=== PATIENT | male | born 1995 | race Caucasian/White ===

== ENCOUNTER 2018-01-11 17:22 | Inpatient (IN) | payer OTHER, SELFPAY ==
[2018-01-11 17:23] VITALS: BP 109/68; PULSE 129; RESP 18; TEMP 37.8; O2SAT 99; BMI 24.3
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
[2018-01-11] MEDS: Acetaminophen 500 MG Tablet 1000 MG PO (18:02)
[2018-01-11] MEDS: 0.9% Normal Saline 1,000 ML 999 ML IV (18:02)
[2018-01-11 18:12] LABS: Absolute Lymphocyte Count 1.07 X10^3/ul (0.83-4.51); Absolute Neutrophil Count 14.6 X10^3/uL (2.0-7.7); Eosinophil# 0.21 X10^3/uL; Eosinophils% 1.2 % (0-5); Hematocrit 43.3 % (40-54); Hemoglobin 15.3 g/dl (13.0-16.5); Lymphocyte # 1.07 X10^3/ul (4.0); Lymphocyte % 6.2 % (19-41); Mean Corp Hgb Conc 35.3 g/gl (32-36); Mean Corpuscular Hgb 29.6 pg (27.0-32.0); Mean Corpuscular Volume 83.8 fL (80-94); Mean Platelet Vol. 9.4 fl (6.2-12.0); Monocyte# 1.27 X10^3/uL; Monocyte% 7.4 % (0-10); Neutrophil # 14.63 X10^3/uL (2.7-7.7); POSITIVE COUNT NO; POSITIVE DIFFERENTIAL NO; POSITIVE MORPHOLOGY NO; Platelet Count 159 K/mm3 (150-450); RBC Distribution Width CV 12.3 % (11.6-14.6); RBC Distribution Width SD 37.4 fl (35.1-43.9); Red Blood Count 5.17 M/mm3 (4.6-6.2); White Blood Count 17.2 K/mm3 (4.4-11.0)
[2018-01-11 18:19] LABS: Anion Gap 11 (5-15); BUN 11 mg/dL (7-18); BUN/Creat Ratio 12.1 RATIO (10-20); Calcium,Total 9.1 mg/dL (8.5-10.1); Chloride 97 mmol/L (98-107); Creatinine, Serum 0.91 mg/dL (0.70-1.30); EST Glomerular Filtration Rate 112 mL/min (>60); Est Glom Filt Rate - Afr Amer 135 mL/min (>60); Estimated Creatinine Clearance 132.59 ml/min; Glucose 103 mg/dL (74-106); Potassium 3.6 mmol/L (3.5-5.1); Sodium Level 134 mmol/L (136-145)
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
[2018-01-11 19:23] VITALS: BMI 25.5
[2018-01-11 19:27] VITALS: BMI 25.5
--- NOTE | 2018-01-11 19:31 | VDUE_ITS ---
Reason For Study: Swelling Right Proximal Right jugular vein is spontaneous, widely patent, phasic, with no intraluminal echogenicity noted. Right subclavian vein is spontaneous, widely patent, phasic, with no intraluminal echogenicity noted. Right Lower Arm Right radial vein is compressible. Right ulnar vein is compressible. Right Arm Right axillary vein is spontaneous, patent, phasic, competent, compressible and demonstrates augmentation. Right brachial vein is compressible. Right cephalic vein is compressible. Right basilic vein is compressible. Interpretation Summary Deep veins of the right upper extremity are patent and compressible segmentally. There is no evidence of deep vein thrombosis. The superficial veins of the right upper extremity, the basilic and cephalic veins, are patent and compressible. There is no evidence of right upper extremity superficial thrombophlebitis involving the veins imaged. Ordering Physician: Alvaro Sellers Performed By: Carlos RODRIGUEZ, May IBRAHIM and Student ???
[2018-01-11 20:30] LABS: Erythrocyte Sedimentation Rate 46 mm/hr (0-15)
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
[2018-01-11] MEDS: 0.9% Normal Saline 1,000 ML 100 ML IV (20:36)
[2018-01-11] MEDS: Cefazolin 1 GM/50 ML BAG IV (21:30)
[2018-01-11 22:11] LABS: Lactic Acid 1.8 mmol/L (0.4-2.0)
[2018-01-11 22:58] LABS: Staph aureus DNA By PCR POSITIVE (Negative)
[2018-01-11 22:59] LABS: M R Staph aureus DNA By PCR POSITIVE (Negative); Probe Check PASS
[2018-01-12 02:00] VITALS: BP 115/65; PULSE 82; RESP 16; TEMP 37.1; O2SAT 97
--- NOTE | 2018-01-12 02:07 | PCM.RX.CS ---
Consult Pharmacy has been consulted to manage selected antiobiotic: Vancomycin Type of Consult: New start Suspected Infection: Skin/Soft tissue Labs: Sodium 134 mmol/L (136-145) L 01/11/18 17:35 Potassium 3.6 mmol/L (3.5-5.1) 01/11/18 17:35 Chloride 97 mmol/L (98-107) L 01/11/18 17:35 Carbon Dioxide 26.0 mmol/L (21.0-32.0) 01/11/18 17:35 Anion Gap 11 (5-15) 01/11/18 17:35 BUN 11 mg/dL (7-18) 01/11/18 17:35 Creatinine 0.91 mg/dL (0.70-1.30) 01/11/18 17:35 Est GFR (MDRD) Af Amer 135 mL/min (>60) 01/11/18 17:35 Est GFR (MDRD) Non-Af 112 mL/min (>60) 01/11/18 17:35 BUN/Creatinine Ratio 12.1 RATIO (10-20) 01/11/18 17:35 Glucose 103 mg/dL (74-106) 01/11/18 17:35 Goal Trough: 10-15 mcg/mL Pharmacy Plan for Drug Dosing: Pharmacy Service will continue to monitor and adjust dosing as required. Medications Vancomycin HCl (Vancomycin) 1,000 mg in 200 mls @ 200 mls/hr IV Q8H [facility] Follow-Up Labs: Trough Vancomycin Labs to be done on [date and time ordered]: 01/13 @ 0200
--- NOTE | 2018-01-12 02:10 | PHA.PHARE_ITS ---
Consult Pharmacy has been consulted to manage selected antiobiotic: Vancomycin Type of Consult: New start Suspected Infection: Skin/Soft tissue Labs: Sodium 134 mmol/L (136-145) L 01/11/18 17:35 Potassium 3.6 mmol/L (3.5-5.1) 01/11/18 17:35 Chloride 97 mmol/L (98-107) L 01/11/18 17:35 Carbon Dioxide 26.0 mmol/L (21.0-32.0) 01/11/18 17:35 Anion Gap 11 (5-15) 01/11/18 17:35 BUN 11 mg/dL (7-18) 01/11/18 17:35 Creatinine 0.91 mg/dL (0.70-1.30) 01/11/18 17:35 Est GFR (MDRD) Af Amer 135 mL/min (>60) 01/11/18 17:35 Est GFR (MDRD) Non-Af 112 mL/min (>60) 01/11/18 17:35 BUN/Creatinine Ratio 12.1 RATIO (10-20) 01/11/18 17:35 Glucose 103 mg/dL (74-106) 01/11/18 17:35 Goal Trough: 10-15 mcg/mL Pharmacy Plan for Drug Dosing: Pharmacy Service will continue to monitor and adjust dosing as required. Medications Vancomycin HCl (Vancomycin) 1,000 mg in 200 mls @ 200 mls/hr IV Q8H [facility] [place] Follow-Up Labs: Trough Vancomycin Labs to be done on [date and time ordered]: 01/13 @ 0200
[2018-01-12] MEDS: Vancomycin IV 1,000 MG/200 ML BAG 200 MG IV ×3 (02:22→18:41)
[2018-01-12] MEDS: Cefazolin 1 GM/50 ML BAG IV ×2 (06:10→14:11)
[2018-01-12 06:15] LABS: Absolute Lymphocyte Count 0.96 X10^3/ul (0.83-4.51); Absolute Neutrophil Count 9.7 X10^3/uL (2.0-7.7); Basophil# 0.01 X10^3/uL; Basophil% 0.1 % (0-1); Eosinophil# 0.45 X10^3/uL; Eosinophils% 3.7 % (0-5); Hemoglobin 12.7 g/dl (13.0-16.5); Lymphocyte # 0.96 X10^3/ul (4.0); Lymphocyte % 7.9 % (19-41); Mean Corp Hgb Conc 35.3 g/gl (32-36); Mean Corpuscular Hgb 29.6 pg (27.0-32.0); Mean Corpuscular Volume 83.9 fL (80-94); Mean Platelet Vol. 9.8 fl (6.2-12.0); Monocyte# 1.02 X10^3/uL; Monocyte% 8.4 % (0-10); Neutrophil # 9.68 X10^3/uL (2.7-7.7); Neutrophil % 79.6 % (47-70); Platelet Count 170 K/mm3 (150-450); RBC Distribution Width CV 12.3 % (11.6-14.6); RBC Distribution Width SD 37.1 fl (35.1-43.9); Red Blood Count 4.29 M/mm3 (4.6-6.2); White Blood Count 12.2 K/mm3 (4.4-11.0)
[2018-01-12 06:17] LABS: POSITIVE COUNT NO; POSITIVE DIFFERENTIAL NO; POSITIVE MORPHOLOGY YES
[2018-01-12 06:18] LABS: Differential Indicated SCAN CRITERIA MET
[2018-01-12 06:20] LABS: Bedside Glucose 107 mg/dL (70-110)
[2018-01-12] MEDS: 0.9% Normal Saline 1,000 ML 100 ML IV (07:00)
[2018-01-12 08:40] VITALS: BP 114/54; PULSE 84; RESP 16; TEMP 36.6; O2SAT 96
--- NOTE | 2018-01-12 12:05 | CASEMGMT ---
SEE RN CM ASSESS LINK: D/C Plan: Home Intro self and RN CM role to pt and his mother who is at bedside. Pt awake/alert/oriented, willing to participate in assessment, and able to answer all questions appropriately. Pt lives with his parents and family and independent in ambulation and personal care ADL's. Pt uses no DME and no needs identified. Demographics and PCP confirmed. Denies having any further questions or needs. Pt wishes to return home on discharge. CM to follow for any discharge planning needs that may arise. Amee ADAMSONN RN CM
[2018-01-12 14:10] VITALS: BP 108/57; PULSE 90; RESP 16; TEMP 36.6; O2SAT 98
--- NOTE | 2018-01-12 16:07 | PCM.PN.ORT ---
Patient Problems: Active and Suspected Problems Cellulitis of right upper extremity (Acute) Subjective: Patient reexamined today. He states the pain is improving. His swelling is decreased. He still has a fair amount of swelling. No pain with elbow range of motion. Wound care is taken a look at the small wound on his elbow and started Silverlon dressing changes. Current pain is 5 out of 10. Worse with pressure on the forearm better with immobilization. - Physical Exam General: Alert, Oriented x3, Cooperative Extremities: - - Right upper extremity: Small area is dressed with Silverlon dressing. No active drainage. No underlying fluctuance. Forearm is still swollen with overlying erythema. Erythema is improved from yesterday receding from outline. Erythema is not as intense. There is no specific area of fluctuance that I know today consistent with an abscess. Vital Signs Temp Pulse Resp BP Pulse Ox 97.9 F 90 16 108/57 L 98 01/12/18 14:10 01/12/18 14:10 01/12/18 14:10 01/12/18 14:10 01/12/18 14:10 Oxygen Delivery Method Room Air Weight: 177 lb 15.984 oz Body Mass Index (BMI) 25.5 Intake and Output for Last 24 Hours 01/10/18 01/11/18 01/12/18 23:59 23:59 23:59 Intake Total 3394 / 3394 Balance 3394 / 3394 Microbiology Past 72 Hours 01/11/18 21:25 Gram Stain - Final Wound Abcess - Elbow Laboratory Tests Past 24 Hrs 01/11/18 01/12/18 21:25 05:25 WBC 12.2 H RBC 4.29 L Hgb 12.7 L Hct 36.0 L MCV 83.9 MCH 29.6 MCHC 35.3 RDW 12.3 RDW Differential 37.1 Plt Count 170 MPV 9.8 Immature Gran % (Auto) 0.300 Neut % (Auto) 79.6 H Lymph % (Auto) 7.9 L [place] % (Auto) 8.4 Eos % (Auto) 3.7 Baso % (Auto) 0.1 Absolute Neuts (auto) 9.7 H Absolute Lymphs (auto) 0.96 Total Counted Not Reportable S.aureus Protein A PCR POSITIVE H MRSA (PCR) POSITIVE H POC Glucose 01/12/18 06:17 POC Glucose 107 Medical Necessity - Tobacco Use Smoking Status: Current every day smoker Tobacco Use: Cigars Assessment/Plan All Active Problems Cellulitis of right upper extremity (Acute) Right forearm cellulitis At this point I appreciate only cellulitis of the forearm. No underlying abscess or infected bursitis is noted. I did discuss with the patient the possibility of developing an abscess. Continue to monitor his skull examination. If he does have resolution of the erythema except for an one area could be possibility of underlying abscess in the forearm. CT or MRI would be advised if that is the case. Based on his current clinical examination and symptoms I recommend continued antibiotics for treatment of cellulitis and follow-up with his primary care doctor. [facility] Office:
--- NOTE | 2018-01-12 16:49 | CHAPLAIN ---
Type of Pastoral Visit _x__ Initial Visit ___ Follow-up Visit ___ On-call Visit ___ General Patient Visit ___ Spiritual Assessment ___ Family Conference ___ Bereavement ___ Rapid Response ___ Code Blue ___ Other (describe below) Pastoral Care Referral From x___ Patient ___ Family ___ Nurse ___ Physician ___ Ceramics Teacher ___ Cloth Printing Inspector ___ Other (describe below) Sacrament/Intervention _x__ Active listening ___ Anointing ___ Congregation ___ Bereavement ___ Communion ___ Brianne exploration ___ ___ Life review ___ Prayer ___ Reconciliation ___ Sacrament of Sick ___ Supportive presence ___ Wedding ___ Other (describe below) Pastoral Comments
--- NOTE | 2018-01-12 18:42 | PN_ITS ---
Patient Problems: Active and Suspected Problems Cellulitis of right upper extremity (Acute) Subjective: Patient seen and examined today, he still having some redness in his right forearm, there is no visible drainage coming out of the abraded area on the patient's right elbow. Patient's mother was in the room during my examination. Culture of the elbow wound is pending at this time, PCR was obtained last night was positive for staph and MRSA. - Physical Exam General: Alert, Oriented x3, Cooperative HEENT: Atraumatic, PERRLA, EOMI, Normocephalic Oral: Moist Mucosa Neck: Supple, Trachea Midline, Thyroid Normal Size and Texture Lungs: Clear to auscultation, Normal air movement, No rhonchi, No wheeze, No rales Cardiovascular: Regular rate, No murmurs Abdomen: Bowel Sounds Present, Soft, Non Tender Extremities: Capillary Refill Less than 3 Seconds, Edema - Generalized edema is noted of the right forearm along with redness Skin: Ulcer/ Wound - There is an abraded area approximately 1-2 cm in diameter over the patient's right elbow area, Rash Present - There is redness present over the patient's right forearm Neurological: Cranial nerves II-XII grossly intact, Neuro grossly intact, Sensory exam intact to light touch and pain, Coordination normal Psych/Mental Status: Normal Affect, Appropriate, Alert and oriented to time, place, person, mood and affect Vital Signs Temp Pulse Resp BP Pulse Ox 97.9 F 90 16 108/57 L 98 01/12/18 14:10 01/12/18 14:10 01/12/18 14:10 01/12/18 14:10 01/12/18 14:10 Oxygen Delivery Method Room Air Weight: 80.739 kg Body Mass Index (BMI) 25.5 Intake and Output for Last 24 Hours 01/10/18 01/11/18 01/12/18 23:59 23:59 23:59 Intake Total 3394 / 3394 Balance 3394 / 3394 Microbiology Past 72 Hours 01/11/18 21:25 Gram Stain - Final Wound Abcess - Elbow Laboratory Tests Past 24 Hrs 01/11/18 01/12/18 21:25 05:25 WBC 12.2 H RBC 4.29 L Hgb 12.7 L Hct 36.0 L MCV 83.9 MCH 29.6 MCHC 35.3 RDW 12.3 RDW Differential 37.1 Plt Count 170 MPV 9.8 Immature Gran % (Auto) 0.300 Neut % (Auto) 79.6 H Lymph % (Auto) 7.9 L [place] % (Auto) 8.4 Eos % (Auto) 3.7 Baso % (Auto) 0.1 Absolute Neuts (auto) 9.7 H Absolute Lymphs (auto) 0.96 Total Counted Not Reportable S.aureus Protein A PCR POSITIVE H MRSA (PCR) POSITIVE H POC Glucose 01/12/18 06:17 POC Glucose 107 Medical Necessity - Tobacco Use Smoking Status: Current every day smoker Tobacco Use: Cigars Assessment/Plan All Active Problems Cellulitis of right upper extremity (Acute) #1 cellulitis of the right forearm-probably secondary to MRSA, Ancef will be stopped and the patient will be maintained on vancomycin, infectious disease will see the patient tomorrow Code Visit Inpatient E&M: 02266 Subs Hosp L2
[2018-01-12 20:34] VITALS: BP 111/56; PULSE 80; RESP 16; TEMP 36.8; O2SAT 99
[2018-01-13] MEDS: Vancomycin IV 1,000 MG/200 ML BAG 200 MG IV (02:23)
[2018-01-13 02:27] VITALS: BP 116/57; PULSE 76; RESP 16; TEMP 37.2; O2SAT 97
[2018-01-13 03:34] LABS: Vancomycin, Trough Level 6.8 ug/mL (5.0-15.0)
--- NOTE | 2018-01-13 05:39 | PCM.RX.CS ---
Consult Pharmacy has been consulted to manage selected antiobiotic: Vancomycin Type of Consult: Follow-up Suspected Infection: Skin/Soft tissue Prior Doses of Antibiotics Received/Current Regimen: Medications Vancomycin HCl 1,750 mg/ (Sodium Chloride) 535 mls @ 250 mls/hr IV Q8H [facility] Discontinued Medications Vancomycin HCl (Vancomycin) 1,000 mg in 200 mls @ 200 mls/hr IV Q8H [facility] Last Admin: 01/13/18 02:23 Dose: 200 mls/hr Labs: Sodium 134 mmol/L (136-145) L 01/11/18 17:35 Potassium 3.6 mmol/L (3.5-5.1) 01/11/18 17:35 Chloride 97 mmol/L (98-107) L 01/11/18 17:35 Carbon Dioxide 26.0 mmol/L (21.0-32.0) 01/11/18 17:35 Anion Gap 11 (5-15) 01/11/18 17:35 BUN 11 mg/dL (7-18) 01/11/18 17:35 Creatinine 0.91 mg/dL (0.70-1.30) 01/11/18 17:35 Est GFR (MDRD) Af Amer 135 mL/min (>60) 01/11/18 17:35 Est GFR (MDRD) Non-Af 112 mL/min (>60) 01/11/18 17:35 BUN/Creatinine Ratio 12.1 RATIO (10-20) 01/11/18 17:35 Glucose 103 mg/dL (74-106) 01/11/18 17:35 Vancomycin Trough 6.8 ug/mL (5.0-15.0) 01/13/18 01:30 Microbiology: Microbiology 01/11/18 21:25 Wound Abcess - Elbow Gram Stain - Final Weight used for dosin.7 kg Estimated Creatinine Clearance: 132 Goal Trough: 10-15 mcg/mL Pharmacy Plan for Drug Dosing: Trough level returned low at 6.8. Goal range is 10-15. Increased dose to 1750mg q8hrs, and will re-draw trough level before fourth dose. Pharmacy Service will continue to monitor and adjust dosing as required. Follow-Up Labs: Trough Vancomycin Labs to be done on [date and time ordered]: 01/14/18 @0130
[2018-01-13 07:02] LABS: Absolute Lymphocyte Count 1.04 X10^3/ul (0.83-4.51); Absolute Neutrophil Count 6.2 X10^3/uL (2.0-7.7); Basophil# 0.01 X10^3/uL; Basophil% 0.1 % (0-1); Eosinophil# 0.39 X10^3/uL; Eosinophils% 4.5 % (0-5); Hematocrit 35.4 % (40-54); Hemoglobin 12.2 g/dl (13.0-16.5); Lymphocyte # 1.04 X10^3/ul (4.0); Mean Corp Hgb Conc 34.5 g/gl (32-36); Mean Corpuscular Hgb 29.4 pg (27.0-32.0); Mean Corpuscular Volume 85.3 fL (80-94); Mean Platelet Vol. 9.7 fl (6.2-12.0); Monocyte# 1.02 X10^3/uL; Monocyte% 11.8 % (0-10); Neutrophil # 6.16 X10^3/uL (2.7-7.7); Neutrophil % 71.3 % (47-70); Platelet Count 206 K/mm3 (150-450); RBC Distribution Width CV 12.6 % (11.6-14.6); RBC Distribution Width SD 38.5 fl (35.1-43.9); Red Blood Count 4.15 M/mm3 (4.6-6.2); White Blood Count 8.7 K/mm3 (4.4-11.0)
[2018-01-13 07:08] LABS: POSITIVE COUNT NO; POSITIVE DIFFERENTIAL NO; POSITIVE MORPHOLOGY NO
[2018-01-13 08:05] VITALS: BP 107/56; PULSE 71; RESP 16; TEMP 36.6; O2SAT 100
[2018-01-13] MEDS: 0.9% NaCl Peripheral Flush Adult/Peds IV (09:49)
--- NOTE | 2018-01-13 11:18 | CON.PCM_ITS ---
Problem List (1) Cellulitis of right upper extremity Status: Acute Reason for Consult: cellulitis Consulted by: Dr. Coe History of Present Illness: The patient is a 22 year old M with no prior h/o skin infection who presented with one week of R elbow and forearm swelling/pain/redness/warmth/purulent drainage. No fever or chills. Sx started after he bumped his arm. No prior h/ o MRSA. No pain with joint movement. Sx worsened, came to ED, seen by ortho, improving on iv vanc. Full ROS performed and neg except as noted above. - Medical History Allergies/Adverse Reactions: Allergies No Known Allergies Allergy (Verified 01/11/18 17:25) Home Medications: Ambulatory Orders Medication Instructions Recorded NK [NK] 01/11/18 - Social History Tobacco Use: cigarettes Vital Signs Temp Pulse Resp BP Pulse Ox 97.8 F 71 16 107/56 L 100 01/13/18 08:05 01/13/18 08:05 01/13/18 08:05 01/13/18 08:05 01/13/18 08:05 Oxygen Delivery Method Room Air Weight: 80.739 kg Body Mass Index (BMI) 25.5 Microbiology Past 72 Hours 01/11/18 21:25 Gram Stain - Final Wound Abcess - Elbow Wound Culture - Preliminary Staphylococcus aureus Laboratory Tests Past 24 Hrs 01/11/18 01/13/18 01/13/18 21:25 01:30 06:30 WBC 8.7 RBC 4.15 L Hgb 12.2 L Hct 35.4 L MCV 85.3 MCH 29.4 MCHC 34.5 RDW 12.6 RDW Differential 38.5 Plt Count 206 MPV 9.7 Immature Gran % (Auto) 0.300 Neut % (Auto) 71.3 H Lymph % (Auto) 12.0 L [place] % (Auto) 11.8 H Eos % (Auto) 4.5 Baso % (Auto) 0.1 Absolute Neuts (auto) 6.2 Absolute Lymphs (auto) 1.04 Total Counted Not Reportable Vancomycin Trough 6.8 S.aureus Protein A PCR POSITIVE H MRSA (PCR) POSITIVE H - Other Studies Radiology: [] reviewed Other Studies: [] Route of nutrition/ use of supplements: [] Nutritional Intake: [] IV Site: [] Logan Catheter: [] - Physical Exam General: Alert, Oriented x3, Cooperative, No apparent distress HEENT: Atraumatic, PERRLA, EOMI Neck: Supple, No Nodes Lungs: Clear to auscultation, Normal air movement Cardiovascular: Regular rate, Regular Rhythm Abdomen: Soft, Non Tender, Non-Distended Skin: Rash Present - swelling, warmth, and redness over R forearm IV Site: Peripheral, without redness Musculoskeletal: No Tenderness to Palpation of Joints or Extremities Neurological: Cranial nerves II-XII grossly intact - Assessment/Plan Antibiotics: [] Assessment/Plan: [] Active and Suspected Problems Cellulitis of right upper extremity (Acute) MRSA cellulitis of RUE - improving, wbc now normal. Ok for d/c home on po bactrim DS bid for 10 days with PCP followup. Will follow, thank you, d/w primary team.
[2018-01-13] MEDS: Smz/Tmp Ds Tablet 1 TABLET PO (12:14)
[2018-01-13 14:15] VITALS: BP 107/51; PULSE 74; RESP 18; TEMP 37.1; O2SAT 98
--- NOTE | 2018-01-13 15:00 | DCINST_ITS ---
- Discharge Diagnoses Current Active Problems: Current Active and Chronic Problems Cellulitis of right upper extremity (Acute) You will use the following diet at home:: No restrictions Your food should be the consistency of: Regular Your liquids should be the consistency of: Regular/Thin Discharge Activity: Return to Normal Activity Allergies/Adverse Reactions: Allergies No Known Allergies Allergy (Verified 01/11/18 17:25) Medications to take at Discharge Smz/Tmp Ds [Bactrim Ds] 1 tablet PO BID #20 tablet 01/13/18 The following prescriptions were given: Smz/Tmp Ds [Bactrim Ds] 1 tablet PO BID #20 tablet Primary Care Physician: Adolph Leblanc DO [Primary Care Provider] - Please follow up with your Primary Care Physician in: next Moday of Wednesday Test Results: Test results from this visit will be discussed in further detail at your follow- up appointment, if applicable.
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
== END 2018-01-13 17:30 | disposition home or self-care (01) | DRG 603 ==
LOC: ED 17:48 → MS2 19:06
PROVIDERS: Hospitalist; Admitting Provider Internal Medicine; Emergency Provider Emergency Medicine; Family Provider Family Medicine; PCP Family Medicine; Visit Provider Internal Medicine
DX: L03.113 Cellulitis of right upper limb (principal); B95.62 Methicillin resistant Staphylococcus aureus infection as the cause of diseases classified elsewhere
CPT/HCPCS: 36415; 73080; 80048; 80202; 82962; 83036; 83605; 85025; 85652; 87040; 87070; 87075; 87077; 87186; 87205; 87640; 93970; 93971; 97802; 99281; J7030; J7040; J7050; A4216